=== PATIENT | female | born 2000 ===

== ENCOUNTER → 2023-07-08 | Outpatient (CLI) | payer OTHER ==
[2023-07-09 06:06] LABS: Mumps IgG Antibody >300.0 AU/mL (Immune >10.9); Rubeola IgG Antibody >300.0 AU/mL (Immune >16.4); Varicella Zoster IgG Antibody 1092 index (Immune >165)
== END | disposition home or self-care (01) ==
LOC: LAB 11:10
PROVIDERS: ATTEND Licensed Practical Nurse
DX: Z01.84 Encounter for antibody response examination (principal)
CPT/HCPCS: 36415; 86706; 86735; 86762; 86765; 86787